=== PATIENT | female | born 1955 | race Caucasian/White ===

== ENCOUNTER 2018-06-13 08:00 | Outpatient (CLI) | payer BC, OTHER ==
[2018-06-14 11:00] LABS: MUDS CUTOFF CONCENTRATIONS CUTOFF CONC BELOW:
[2018-06-14 13:32] LABS: COCAINE SCREEN URINE NEGATIVE (NEGATIVE); METHAMPHETAMINES SCREEN, URINE NEGATIVE (NEGATIVE)
[2018-06-14 13:33] LABS: AMPHETAMINE SCREEN,URINE NEGATIVE (NEGATIVE); BENZODIAZEPINES SCREEN, URINE NEGATIVE (NEGATIVE); METHADONE SCREEN, URINE NEGATIVE (NEGATIVE); OPIATE SCREEN, URINE POSITIVE (NEGATIVE); OXYCODONE SCREEN, URINE NEGATIVE (NEGATIVE); PROPOXYPHENE SCREEN, URINE NEGATIVE (NEGATIVE); TRICYCLIC ANTIDEPRESSANT,URINE NEGATIVE (NEGATIVE)
== END 2018-06-13 23:59 ==
LOC: LAB.R 08:00
PROVIDERS: ATTEND Family Medicine
DX: F41.9 Anxiety disorder, unspecified (principal); Z79.891 Long term (current) use of opiate analgesic
CPT/HCPCS: 80306

== ENCOUNTER 2018-12-04 08:00 | Outpatient (CLI) | payer BC | END 2018-12-04 23:59 | disposition home or self-care (01) | LOC: LAB.R 08:00 | PROVIDERS: ATTEND Physician Assistant | DX: I83.209 Varicose veins of unspecified lower extremity with both ulcer of unspecified site and inflammation (principal); L97.909 Non-pressure chronic ulcer of unspecified part of unspecified lower leg with unspecified severity | CPT/HCPCS: 87070; 87075; 87147; 87186; 87205 ==

== ENCOUNTER 2018-12-24 12:37 | Outpatient (CLI) | payer BC ==
--- NOTE | 2018-12-24 14:02 | Ultrasound Report ---
Reason: LYMPHEDEMA Procedure Date: 12/24/2018 Accession Number: [id number] / [id number] Procedure: US - Ankle Brachial Index CPT Code: FULL RESULT: EXAM: BILATERAL ANKLE/BRACHIAL INDEX EXAM DATE: 12/24/2018 01:41 PM. CLINICAL HISTORY: Smoker with leg swelling, likely lymphedema. COMPARISON: None. TECHNIQUE: A blood pressure cuff and pulse volume recording Doppler ultrasound was used to evaluate the arterial pressures in the arms and ankle. No images were acquired. FINDINGS: Brachial pressure: Right brachial artery: 146/72 mmHg, index 1.00 Left brachial artery: 145/75 mmHg, index 1.00 Right ankle pressures: Posterior tibial artery: 144/72 mmHg, index 0.98 Left ankle pressures: Posterior tibial artery: 148/69 mmHg, index 1.0 Color and spectral Doppler interrogation of the left and right posterior tibial arteries as well as left and right dorsalis pedis arteries was performed. The right dorsalis pedis artery and posterior tibial artery both demonstrate normal triphasic waveforms with brisk systolic upstrokes. The left posterior tibial artery demonstrates a brisk systolic upstroke and normal triphasic waveform and the left dorsalis pedis artery demonstrates a biphasic waveform with preserved flow. IMPRESSION: 1. Right ankle/brachial index: 0.98. 2. Left ankle/brachial index: 1.0. ANKLE/BRACHIAL INDEX REFERENCE STANDARDS 1.0-1.4: Normal 0.90-0.99: Borderline < 0.9: Abnormal RADIA
== END 2018-12-24 12:38 | disposition home or self-care (01) ==
LOC: DI 12:37
PROVIDERS: ATTEND Physician Assistant
DX: I89.0 Lymphedema, not elsewhere classified (principal)
CPT/HCPCS: 93922

== ENCOUNTER 2019-06-10 08:00 | Outpatient (CLI) | payer BC ==
[2019-06-10 19:13] LABS: LITHIUM 0.47 mmol/L
== END 2019-06-10 23:59 | disposition home or self-care (01) ==
LOC: LAB.WCP 08:00
PROVIDERS: ATTEND Family Medicine
DX: Z51.81 Encounter for therapeutic drug level monitoring (principal); Z79.899 Other long term (current) drug therapy
CPT/HCPCS: 36415; 80178

== ENCOUNTER 2021-11-23 08:00 | Outpatient (CLI) | payer BC ==
[2021-11-23 17:59] LABS: BASOPHILS # (AUTO) 0.1 10^3/uL (0.0-0.1); BASOPHILS % (AUTO) 1.4 %; EOSINOPHILS # (AUTO) 0.6 10^3/uL (0.0-0.7); EOSINOPHILS % (AUTO) 6.9 %; HCT - HEMATOCRIT 42.3 % (37.0-47.0); HGB - HEMOGLOBIN 13.6 g/dL (12.0-16.0); LYMPHOCYTES # (AUTO) 2.6 10^3/uL (1.5-3.5); LYMPHOCYTES % (AUTO) 29.3 %; MEAN CORPUSCULAR HEMOGLOBIN 28.1 pg (27.0-31.0); MEAN CORPUSCULAR HGB CONC 32.2 g/dL (32.0-36.0); MEAN CORPUSCULAR VOLUME 87.4 fL (81.0-99.0); MEAN PLATELET VOLUME 9.2 fL (7.9-10.8); MONOCYTES # (AUTO) 0.8 10^3/uL (0.0-1.0); MONOCYTES % (AUTO) 8.9 %; NEUTROPHILS # (AUTO) 4.6 10^3/uL (1.5-6.6); NEUTROPHILS % (AUTO) 53.2 %; PLT - PLATELET COUNT 312 10^3/uL (130-450); RED BLOOD COUNT 4.84 10^6/uL (4.20-5.40); RED CELL DISTRIBUTION WIDTH 14.5 % (12.0-15.0); WHITE BLOOD COUNT 8.7 x10^3/uL (4.8-10.8)
[2021-11-23 21:32] LABS: ALBUMIN 3.8 g/dL (3.2-5.5); ALBUMIN/GLOBULIN RATIO 1.2 (1.0-2.2); BILIRUBIN,TOTAL 0.7 mg/dL (0.2-1.0); CREATININE 0.7 mg/dL (0.4-1.0); POTASSIUM 3.9 mmol/L (3.5-5.0)
[2021-11-23 21:43] LABS: THYROID STIMULATING HORMONE 4.03 uIU/mL (0.34-5.60)
== END 2021-11-23 23:59 | disposition home or self-care (01) ==
LOC: LAB.N 08:00
PROVIDERS: ATTEND Family Medicine
DX: L03.90 Cellulitis, unspecified (principal); I89.0 Lymphedema, not elsewhere classified; I87.2 Venous insufficiency (chronic) (peripheral); I10 Essential (primary) hypertension; C34.10 Malignant neoplasm of upper lobe, unspecified bronchus or lung
CPT/HCPCS: 36415; 80053; 83880; 84443; 85025; 87070; 87181; 87205

== ENCOUNTER 2021-11-23 13:42 | Outpatient (CLI) | payer BC ==
--- NOTE | 2021-11-23 14:01 | XRAY Report ---
PROCEDURE: Chest 2 View X-Ray INDICATIONS: CELLULITIS, LYMPHEDEMA TECHNIQUE: 2 view(s) of the chest. COMPARISON: Reference is made to the CT chest dated April 24, 2011. FINDINGS: SUPPORT DEVICES: None. LUNGS/PLEURA: No focal consolidation, pleural effusion or space-occupying pneumothorax. MEDIASTINUM: The cardiomediastinal silhouette is within normal limits. BONES/SOFT TISSUES: No acute abnormality. IMPRESSION: 1.No acute cardiopulmonary abnormality. Reviewed by: Mayo Oneal MD on 11/23/2021 1:59 PM [facility] Approved by: Mayo Oneal MD on 11/23/2021 1:59 PM [facility] Station ID: [id number]
== END 2021-11-23 23:59 | disposition home or self-care (01) ==
LOC: DI.N 13:42
PROVIDERS: ATTEND Family Medicine
DX: L03.90 Cellulitis, unspecified (principal); I89.0 Lymphedema, not elsewhere classified; I87.2 Venous insufficiency (chronic) (peripheral); I10 Essential (primary) hypertension; C34.10 Malignant neoplasm of upper lobe, unspecified bronchus or lung

== ENCOUNTER 2021-12-20 21:41 | Emergency (ER) | payer BC ==
[2021-12-20 22:25] VITALS: BP 161/80
[2021-12-20] MEDS ORDERED: MORPHINE 2 MG/ML CARPUJECT IVP STA (23:34)
[2021-12-21 00:10] LABS: BASOPHILS # (AUTO) 0.1 10^3/uL (0.0-0.1); BASOPHILS % (AUTO) 0.9 %; EOSINOPHILS # (AUTO) 0.3 10^3/uL (0.0-0.7); EOSINOPHILS % (AUTO) 3.3 %; HCT - HEMATOCRIT 41.6 % (37.0-47.0); HGB - HEMOGLOBIN 13.6 g/dL (12.0-16.0); LYMPHOCYTES # (AUTO) 2.7 10^3/uL (1.5-3.5); LYMPHOCYTES % (AUTO) 25.7 %; MEAN CORPUSCULAR HGB CONC 32.7 g/dL (32.0-36.0); MEAN CORPUSCULAR VOLUME 85.8 fL (81.0-99.0); MONOCYTES % (AUTO) 9.7 %; NEUTROPHILS # (AUTO) 6.2 10^3/uL (1.5-6.6); NEUTROPHILS % (AUTO) 60.1 %; PLT - PLATELET COUNT 300 10^3/uL (130-450); RED BLOOD COUNT 4.85 10^6/uL (4.20-5.40); RED CELL DISTRIBUTION WIDTH 14.2 % (12.0-15.0); WHITE BLOOD COUNT 10.4 x10^3/uL (4.8-10.8)
[2021-12-21 00:15] LABS: ALBUMIN 3.6 g/dL (3.2-5.5); ALBUMIN/GLOBULIN RATIO 1.2 (1.0-2.2); BILIRUBIN,TOTAL 0.6 mg/dL (0.2-1.0); CALCIUM 8.8 mg/dL (8.5-10.3); CREATININE 0.7 mg/dL (0.4-1.0); POTASSIUM 3.5 mmol/L (3.5-5.0); TOTAL PROTEIN 6.7 g/dL (6.7-8.2)
[2021-12-21] MEDS ORDERED: HYDROmorphone 1 MG/ML CARPUJECT IM STA (00:44)
[2021-12-21] MEDS ORDERED: ceFAZolin 1 GM in SODIUM CHLORIDE 0.9% MINIBAG 100 ML IV STA (00:51)
[2021-12-21] MEDS ORDERED: ceFAZolin 1 GM VIAL ONE (01:09)
[2021-12-21] MEDS ORDERED: DOXYCYCLINE 100 MG TABLET PO STA (01:32)
[2021-12-21] MEDS ORDERED: oxyCODONE/ACET 5/325 Prepack 4 PO STA (01:32)
--- NOTE | 2021-12-21 01:38 | ED Physician Documentation ---
PD HPI LOWER EXT INJURY - Stated complaint Stated Complaint: LT LEG OPEN WOUND/PX - Chief complaint Chief Complaint: Ext Problem - History obtained from History obtained from: Patient - Additional information Additional information: Patient is a 62-year-old female with a history significant for venous stasis presenting for evaluation of left lower extremity cellulitis that has been present for 6 weeks. Patient has been seen by her primary care doctor's office as well as urgent care and prescribed 2 courses of cephalexin. She states that it did improve after the first course but not after the second. She has had wound cultures taken. She was seen at the walk-in clinic again today and advised to come to the emergency department asThe cephalexin that she just completed 1 day ago did not appear to help.Patient denies history of PE or DVT. Denies recent trauma.She has had clear drainage from the wounds. She has not yet seen wound care. Denies fever, chest pain, difficulty breathing, vomiting or diarrhea.Patient reports burning pain due to weeping wounds. Review of Systems Constitutional: denies: Fever Nose: denies: Congestion Cardiac: denies: Chest pain / pressure, Palpitations Respiratory: denies: Dyspnea, Cough GI: denies: Abdominal Pain, Vomiting : denies: Dysuria Skin: reports: Rash, Lesions Musculoskeletal: reports: Extremity swelling Neurologic: denies: Syncope PD PAST MEDICAL HISTORY - Past Medical History Past Medical History: Yes Neuro: Peripheral neuropathy Derm: Other Other Past Medical History: lung cancer, melanoma, possible lymphadema. - Present Medications Home Medications: Ambulatory Orders Medication Instructions Recorded Confirmed Doxycycline Hyclate 100 mg PO BID #20 tab.sr 12/21/21 Oxycodone HCl/Acetaminophen 1 each PO Q6H PRN #14 tablet 12/21/21 [Percocet 5-325 mg Tablet] - Allergies Allergies/Adverse Reactions: Allergies Allergy/AdvReac Type Severity Reaction Status Date / Time No Known Drug Allergies Allergy Verified 12/20/21 23:40 - Social History Does the pt smoke?: Yes Smoking Status: Current every day smoker Does the pt have substance abuse?: Yes Substance Use and Type: Prescription Pills PD ED PE NORMAL - General General: Alert and oriented X 3, No acute distress, Well developed/nourished - HEENT HEENT: Atraumatic, Moist mucous membranes - Neck Neck: Supple, no meningeal sign - Cardiac Cardiac: RRR, No murmur, Strong equal pulses - Respiratory Respiratory: No respiratory distress, Clear bilaterally - Abdomen Abdomen: Normal bowel sounds, Soft, Non tender - Extremities Extremities: Other (Pitting edema to bilateral lower extremities, erythemaTo left lower leg with multiple shallow ulcerations/open wounds to posterior leg with clear drainage, no fluctuance, no crepitus, distal pulses intact,Patient able to ambulate) Results - Vitals Vitals: Vital Signs - 24 hr 12/20/21 12/20/21 12/21/21 22:23 22:25 01:12 Temperature 36.6 C 36.6 C Heart Rate 73 73 Respiratory 18 18 19 Rate Blood Pressure 161/80 H 161/80 H O2 Saturation 97 97 Oxygen O2 Source Room air - Labs Labs: Laboratory Tests 12/21/21 12/21/21 00:00 00:00 WBC 10.4 RBC 4.85 Hgb 13.6 Hct 41.6 MCV 85.8 MCH 28.0 MCHC 32.7 RDW 14.2 Plt Count 300 MPV 9.0 Neut # (Auto) 6.2 Lymph # (Auto) 2.7 [place] # (Auto) 1.0 Eos # (Auto) 0.3 Baso # (Auto) 0.1 Absolute Nucleated RBC 0.00 Nucleated RBC % 0.0 Sodium 135 Potassium 3.5 Chloride 102 Carbon Dioxide 25 Anion Gap 8.0 BUN 11 Creatinine 0.7 Estimated GFR (MDRD) 84 L Glucose 110 H Calcium 8.8 Total Bilirubin 0.6 AST 16 ALT 13 Alkaline Phosphatase 101 Total Protein 6.7 Albumin 3.6 Globulin 3.1 Albumin/Globulin Ratio 1.2 PD MEDICAL DECISION MAKING - ED course Complexity details: reviewed results, d/w patient, d/w family ED course: Patient is a 62-year-old female presenting for evaluation of left leg cellulitis which has not improved with outpatient therapy. She is not septic and has reassuring vital signs and labs. On exam she does appear to have cellulitis to her left leg. I do not think her exam suggest a DVT, Or a necrotizing infection. As she has failed 2 courses of outpatient antibiotics I did discuss the case with the hospitalist, Dr. Staley. Given her reassuring labs andVital signs, hospitalist does not think she needs to be admitted to the hospital at this time for IV antibiotics. Recommends changing her p.o. antibiotics and having her PCP refer her to wound care. If she were to be admitted she would not have wound care see her anymore urgently.I did review this with the patient and her spouse at the bedside. They indicate understanding and are aware of need to comply with an additional course of antibiotics. They are aware of return precautions. Departure - Departure Disposition: 01 Home, Self Care Clinical Impression: Cellulitis Qualifiers: Site of cellulitis: extremity Site of cellulitis of extremity: lower extremity Laterality: left Qualified Code(s): L03.116 - Cellulitis of left lower limb Venous stasis dermatitis Qualifiers: Laterality: bilateral Qualified Code(s): I87.2 - Venous insufficiency (chronic) (peripheral) Condition: Stable Instructions: ED Infec Skin Cellulitis Prescriptions: Doxycycline Hyclate 100 mg PO BID #20 tab.sr Oxycodone HCl/Acetaminophen [Percocet 5-325 mg Tablet] 1 each PO Q6H PRN #14 tablet PRN Reason: pain Comments: You were evaluated for an infection to your left leg. Fortunately your labs were normal and your vital signs were also reassuring. You did receive 1 dose of IV antibiotics in the emergency department. You will be started on a new antibiotic. You should also have your primary doctor refer you to the wound clinic at [facility]. Please take the antibiotics as prescribed. Prescriptions for pain medication and the antibiotic were sent to the [facility] in [place]. Please have another follow-up with your primary care doctor in 3 to 5 days. If you develop a fever, Worsening pain Or swelling Or have any new concerns please return to the emergency department. Discharge Date/Time: 12/21/21 02:22
== END 2021-12-21 02:22 | disposition home or self-care (01) ==
LOC: ED 21:41
DX: L03.116 Cellulitis of left lower limb (principal); F17.200 Nicotine dependence, unspecified, uncomplicated; I87.2 Venous insufficiency (chronic) (peripheral)
CPT/HCPCS: 36415; 80053; 85025; 87070; 87205; 96365; 96375; 99284; A9270

== ENCOUNTER 2022-01-24 11:01 | Outpatient (CLI) | payer BC | END 2022-01-24 23:59 | disposition home or self-care (01) | LOC: LAB 11:01 | PROVIDERS: ATTEND Nurse Practitioner Family | DX: J31.0 Chronic rhinitis (principal) | CPT/HCPCS: 87077; 87081; 87181 ==

== ENCOUNTER 2022-04-14 13:00 | Outpatient (CLI) | payer BC ==
--- NOTE | 2022-04-14 16:10 | DEXA Report ---
PROCEDURE: Dexa Spine and/or Hip INDICATIONS: POST MENOPAUSAL TECHNIQUE: Dual energy x-ray absorptiometry (DXA) was performed on a [employer] System. Regions measur ed are the AP Spine, femoral neck, and if needed forearm. COMPARISON: None. FINDINGS: Lumbar Spine: Bone Mineral Density 1.1 g/cm/cm,T score -0.8, There is sclerosis of L3 and L4. The T score for L1 and L2 measure -1.9 and -2.1. Left Femoral Neck: Bone Mineral Density 0.82 g/cm/cm, T score -1.6, (T score greater or equal to -1.0: NORMAL) (T score from -1.1 to -2.4: OSTEOPENIA) (T score less than or equal to -2.5 to: OSTEOPOROSIS) Impression: Left femoral neck osteopenia. L1 and L2 osteopenia. Sclerosis of L3 and L4. Patients with diagnosis of osteoporosis or osteopenia should have regular bone mineral density assess ment. For those eligible for Medicare, routine testing is allowed once every 2 years. Testing frequ ency can be increased for patients who have rapidly progressing disease or for those who are receivin g medical therapy to restore bone mass. Reviewed by: Jacques Dominguez MD on 04/14/2022 4:09 PM PDT Approved by: Jacques Dominguez MD on 04/14/2022 4:09 PM PDT Station ID: [id number]
== END 2022-04-14 23:59 | disposition home or self-care (01) ==
LOC: DI 13:00
PROVIDERS: ATTEND Nurse Practitioner Family
DX: M85.89 Other specified disorders of bone density and structure, multiple sites (principal); Z78.0 Asymptomatic menopausal state

== ENCOUNTER 2022-05-27 14:31 | Outpatient (CLI) | payer MEDICARE, BC | END 2022-05-27 14:32 | disposition critical access hospital (66) | LOC: EMS 14:31 | DX: R41.82 Altered mental status, unspecified (principal); M79.89 Other specified soft tissue disorders; M79.605 Pain in left leg; M54.9 Dorsalgia, unspecified | CPT/HCPCS: A0425; A0429 ==

== ENCOUNTER 2022-05-27 14:45 | Emergency (ER) | payer MEDICARE, BC ==
[2022-05-27] MEDS ORDERED: VANCOMYCIN INJ 2.25 GM in SODIUM CHLORIDE 0.9% 500 ML IV STA (14:58)
[2022-05-27] MEDS ORDERED: CLINDAMYCIN 600 MG/50 ML 50 ML IV ONE ×2 (14:58→14:59)
[2022-05-27] MEDS ORDERED: PIPERACILLIN/TAZOBACTAM 4.5 GM in SODIUM CHLORIDE 0.9% MINIBAG 100 ML IV STA (14:58)
[2022-05-27] MEDS ORDERED: KETAMINE 500 MG/10 ML VIAL IVP STA (15:01)
[2022-05-27] MEDS ORDERED: fentaNYL 100 MCG/2 ML VIAL IVP STA (15:01)
[2022-05-27] MEDS ORDERED: ROCURONIUM 50 MG/5 ML VIAL IVP STA (15:01)
[2022-05-27] MEDS ORDERED: fentaNYL 2,500 MCG in SODIUM CHLORIDE 0.9% 200 ML IV STA (15:05)
[2022-05-27] MEDS ORDERED: KETAMINE 500 MG/10 ML VIAL ONE (15:18)
[2022-05-27] MEDS ORDERED: NOREPINEPHRINE/D5W 8 MG/250 ML BAG IV STA (15:27)
[2022-05-27] MEDS ORDERED: NOREPINEPHRINE/D5W 8 MG/250 ML BAG IV ONE (15:37)
--- NOTE | 2022-05-27 15:49 | ED Physician Documentation ---
History of Present Illness - Stated complaint Stated Complaint: WITHDRAWL - Chief complaint Chief Complaint: General - History obtained from History obtained from: Patient, EMS - Additonal information Additional information: 66-year-old woman with history of fibromyalgia and lymphedema of unknown etiology presents by ambulance for reported withdrawal. arrived later and provide much of the history. Reportedly has had worsening leg pain for the last week and stopped most of her medications and was having a lot of pain so was self-medicating with street bought fentanyl. Per EMS has been tachycardic near 200, with soft blood pressures of 90/60. History is limited from the patient, she is able to answer simple questions but is disoriented to time and events. Review of Systems Unable to obtain: Confused PD PAST MEDICAL HISTORY - Past Medical History Past Medical History: Yes Cardiovascular: None Respiratory: Sleep apnea, Other Neuro: Peripheral neuropathy Endocrine/Autoimmune: None GI: Other FIELD UNDERWRITER: None : None HEENT: None Psych: Anxiety Musculoskeletal: Fibromyalgia Derm: Other Other Past Medical History: lung cancer with wedge resection - Past Surgical History Past Surgical History: Yes - Present Medications Home Medications: Ambulatory Orders Medication Instructions Recorded Confirmed Naproxen [Naprosyn] 500 mg PO BID PRN 02/02/22 05/27/22 DULoxetine [Cymbalta] 30 mg PO DAILY 05/27/22 05/27/22 Furosemide [Lasix] 40 mg PO DAILY 05/27/22 05/27/22 Mirtazapine 7.5 mg PO HS PRN 05/27/22 05/27/22 - Allergies Allergies/Adverse Reactions: Allergies Allergy/AdvReac Type Severity Reaction Status Date / Time No Known Drug Allergies Allergy Verified 05/27/22 14:54 - Social History Does the pt smoke?: Yes Smoking Status: Current every day smoker Does the pt drink ETOH?: Yes Does the pt have substance abuse?: Yes Substance Use and Type: Prescription Pills - Immunizations Immunizations are current?: No PD ED PE NORMAL - Vitals Vital signs reviewed: Yes - General General: Other (She is alert and oriented to person and place but not time or events, she is writhing in pain and agitated.) - HEENT HEENT: Other (Dilated pupils) - Cardiac Cardiac: Other (Rapid and irregular without murmur, somewhat distant) - Respiratory Respiratory: No respiratory distress, Clear bilaterally - Abdomen Abdomen: Normal bowel sounds, Soft, Non tender - Extremities Extremities: Other (Both legs have very poor perfusion, the left leg in particular is cold from the mid thigh down with no pulses. She is the skin is denuded infected and foul-smelling.) - Neuro Eye Opening: Spontaneous Motor: Obeys Commands Verbal: Confused GCS Score: 14 Results - Vitals Vitals: Vital Signs - 24 hr 05/27/22 05/27/22 05/27/22 14:54 15:28 15:35 Temperature 36.8 C Heart Rate 66 213 H 200 H Respiratory 30 H 18 16 Rate Blood Pressure 100/77 93/53 L 109/82 H O2 Saturation 80 L 96 96 05/27/22 05/27/22 05/27/22 16:51 17:00 17:30 Temperature 35.5 C L 36.2 C L Heart Rate 168 H 160 H 143 H Respiratory 31 H 22 22 Rate Blood Pressure 114/59 L 111/79 91/67 O2 Saturation 96 97 97 05/27/22 17:52 Temperature 36.1 C L Heart Rate 22 L Respiratory 22 Rate Blood Pressure 94/49 L O2 Saturation 100 Oxygen O2 Source Mechanical ventilator - EKG (time done) 1547 Rate: Rate (enter#) (200) Rhythm: Atrial fibrillation [place]: Normal QRS: Normal Ischemia: Non specific changes. No: ST elevation c/w ischemia - Labs Labs: Laboratory Tests 05/27/22 05/27/22 05/27/22 15:41 15:41 15:41 WBC 43.7 H* RBC 4.88 Hgb 13.2 Hct 39.5 MCV 80.9 L MCH 27.0 MCHC 33.4 RDW 15.9 H Plt Count 146 MPV 11.9 H Neut # (Auto) Not Reportable Lymph # (Auto) Not Reportable [place] # (Auto) Not Reportable Eos # (Auto) Not Reportable Baso # (Auto) Not Reportable Absolute Nucleated RBC Not Reportable Total Counted 100 Band Neuts % (Manual) 26 H Abnorm Lymph % (Manual) 0 Metamyelocytes % 3 H Nucleated RBC % Not Reportable Neutrophils # (Manual) 39.8 H Lymphocytes # (Manual) 0.4 L Monocytes # (Manual) 2.2 H Eosinophils # (Manual) 0.0 Basophils # (Manual) 0.0 Differential Comment MANUAL DIFFERENTIAL Platelet Estimate NORMAL (130-450,000) Platelet Morphology RARE GIANT PLATELETS RBC Morph Micro Appear NORMAL APPEARANCE PT INR APTT Bld Gas Analysis Time Sample Site ABG pH ABG pCO2 ABG pO2 ABG HCO3 ABG Total CO2 ABG O2 Saturation ABG Base Excess [place] Test VBG pH VBG pCO2 VBG pO2 VBG HCO3 VBG Total CO2 VBG O2 Saturation VBG Base Excess Respiration Rate O2 Delivery Device Vent Mode FiO2 Tidal Volume PEEP Sodium 129 L Potassium 3.3 L Chloride 101 Carbon Dioxide 14 L Anion Gap 14.0 H BUN 67 H Creatinine 2.7 H Estimated GFR (MDRD) 18 L Glucose 177 H Lactic Acid 7.8 H* Calcium 6.5 L* Phosphorus 8.4 H Magnesium 2.4 Total Bilirubin 1.0 AST 30 ALT 14 Alkaline Phosphatase 101 Total Protein 5.1 L Albumin 1.0 L Globulin 4.1 Albumin/Globulin Ratio 0.2 L Urine Color Urine Clarity Urine pH Ur Specific [place] Urine Protein Urine Glucose (UA) Urine Ketones Urine Occult Blood Urine Nitrite Urine Bilirubin Urine Urobilinogen Ur Leukocyte Esterase Urine RBC Urine WBC Ur Squamous Epith Cells Amorphous Sediment Urine Bacteria Urine Casts Urine Culture Comments Nasal Adenovirus (PCR) Nasal B. parapertussis DNA (PCR) Nasal Coronavir 229E PCR Nasal Coronavir HKU1 PCR Nasal Coronavir NL63 PCR Nasal Coronavir OC43 PCR Nasal Enterovir/Rhinovir PCR Nasal Influenza B PCR Nasal Influenza A PCR Nasal Parainfluen 1 PCR Nasal Parainfluen 2 PCR Nasal Parainfluen 3 PCR Nasal Parainfluen 4 PCR Nasal RSV (PCR) Nasal B.pertussis DNA PCR Nasal C.pneumoniae (PCR) Toby Human Metapneumo PCR Nasal M.pneumoniae (PCR) Nasal SARS-CoV-2 (PCR) Urine Opiates Screen Ur Oxycodone Screen Urine Methadone Screen Ur Propoxyphene Screen Ur Barbiturates Screen Ur Tricyclics Screen Ur Phencyclidine Scrn Ur Amphetamine Screen U Methamphetamines Scrn U Benzodiazepines Scrn Urine Cocaine Screen U Cannabinoids Screen Ethyl Alcohol < 5.0 05/27/22 05/27/22 05/27/22 15:41 15:41 16:40 WBC RBC Hgb Hct MCV MCH MCHC RDW Plt Count MPV Neut # (Auto) Lymph # (Auto) [place] # (Auto) Eos # (Auto) Baso # (Auto) Absolute Nucleated RBC Total Counted Band Neuts % (Manual) Abnorm Lymph % (Manual) Metamyelocytes % Nucleated RBC % Neutrophils # (Manual) Lymphocytes # (Manual) Monocytes # (Manual) Eosinophils # (Manual) Basophils # (Manual) Differential Comment Platelet Estimate Platelet Morphology RBC Morph Micro Appear PT 25.7 H INR 2.4 H APTT 39.9 H Bld Gas Analysis Time Sample Site ABG pH ABG pCO2 ABG pO2 ABG HCO3 ABG Total CO2 ABG O2 Saturation ABG Base Excess [place] Test VBG pH 7.125 L VBG pCO2 38.8 L VBG pO2 103.2 H VBG HCO3 12.5 L VBG Total CO2 13.7 L VBG O2 Saturation 95.6 H VBG Base Excess -16.0 L Respiration Rate O2 Delivery Device Vent Mode FiO2 Tidal Volume PEEP Sodium Potassium Chloride Carbon Dioxide Anion Gap BUN Creatinine Estimated GFR (MDRD) Glucose Lactic Acid Calcium Phosphorus Magnesium Total Bilirubin AST ALT Alkaline Phosphatase Total Protein Albumin Globulin Albumin/Globulin Ratio Urine Color Urine Clarity Urine pH Ur Specific [place] Urine Protein Urine Glucose (UA) Urine Ketones Urine Occult Blood Urine Nitrite Urine Bilirubin Urine Urobilinogen Ur Leukocyte Esterase Urine RBC Urine WBC Ur Squamous Epith Cells Amorphous Sediment Urine Bacteria Urine Casts Urine Culture Comments Nasal Adenovirus (PCR) NOT DETECTED Nasal B. parapertussis DNA (PCR) NOT DETECTED Nasal Coronavir 229E PCR NOT DETECTED Nasal Coronavir HKU1 PCR NOT DETECTED Nasal Coronavir NL63 PCR NOT DETECTED Nasal Coronavir OC43 PCR NOT DETECTED Nasal Enterovir/Rhinovir PCR NOT DETECTED Nasal Influenza B PCR NOT DETECTED Nasal Influenza A PCR NOT DETECTED Nasal Parainfluen 1 PCR NOT DETECTED Nasal Parainfluen 2 PCR NOT DETECTED Nasal Parainfluen 3 PCR NOT DETECTED Nasal Parainfluen 4 PCR NOT DETECTED Nasal RSV (PCR) NOT DETECTED Nasal B.pertussis DNA PCR NOT DETECTED Nasal C.pneumoniae (PCR) NOT DETECTED Toby Human Metapneumo PCR NOT DETECTED Nasal M.pneumoniae (PCR) NOT DETECTED Nasal SARS-CoV-2 (PCR) NOT DETECTED Urine Opiates Screen Ur Oxycodone Screen Urine Methadone Screen Ur Propoxyphene Screen Ur Barbiturates Screen Ur Tricyclics Screen Ur Phencyclidine Scrn Ur Amphetamine Screen U Methamphetamines Scrn U Benzodiazepines Scrn Urine Cocaine Screen U Cannabinoids Screen Ethyl Alcohol 05/27/22 05/27/22 05/27/22 16:50 17:00 17:42 WBC RBC Hgb Hct MCV MCH MCHC RDW Plt Count MPV Neut # (Auto) Lymph # (Auto) [place] # (Auto) Eos # (Auto) Baso # (Auto) Absolute Nucleated RBC Total Counted Band Neuts % (Manual) Abnorm Lymph % (Manual) Metamyelocytes % Nucleated RBC % Neutrophils # (Manual) Lymphocytes # (Manual) Monocytes # (Manual) Eosinophils # (Manual) Basophils # (Manual) Differential Comment Platelet Estimate Platelet Morphology RBC Morph Micro Appear PT INR APTT Bld Gas Analysis Time 1657 Sample Site LEFT RADIAL ABG pH 7.17 L* ABG pCO2 48 H ABG pO2 327 H* ABG HCO3 17.1 L ABG Total CO2 18.5 L ABG O2 Saturation 99 H ABG Base Excess -11.3 L [place] Test POSITIVE VBG pH VBG pCO2 VBG pO2 VBG HCO3 VBG Total CO2 VBG O2 Saturation VBG Base Excess Respiration Rate 16 O2 Delivery Device VENTILATOR Vent Mode ASSIST/CONTROL FiO2 100.00 Tidal Volume 450 PEEP 5 Sodium Potassium Chloride Carbon Dioxide Anion Gap BUN Creatinine Estimated GFR (MDRD) Glucose Lactic Acid 5.1 H* Calcium Phosphorus Magnesium Total Bilirubin AST ALT Alkaline Phosphatase Total Protein Albumin Globulin Albumin/Globulin Ratio Urine Color YELLOW Urine Clarity HAZY Urine pH 5.5 Ur Specific [place] 1.010 Urine Protein 30 H Urine Glucose (UA) NEGATIVE Urine Ketones NEGATIVE Urine Occult Blood MODERATE H Urine Nitrite NEGATIVE Urine Bilirubin NEGATIVE Urine Urobilinogen 1 (NORMAL) Ur Leukocyte Esterase NEGATIVE Urine RBC 6-10 H Urine WBC 6-10 H Ur Squamous Epith Cells MANY Squamous H Amorphous Sediment Few Urine Bacteria Many H Urine Casts 3-5 Hyaline Casts Urine Culture Comments NOT INDICATED Nasal Adenovirus (PCR) Nasal B. parapertussis DNA (PCR) Nasal Coronavir 229E PCR Nasal Coronavir HKU1 PCR Nasal Coronavir NL63 PCR Nasal Coronavir OC43 PCR Nasal Enterovir/Rhinovir PCR Nasal Influenza B PCR Nasal Influenza A PCR Nasal Parainfluen 1 PCR Nasal Parainfluen 2 PCR Nasal Parainfluen 3 PCR Nasal Parainfluen 4 PCR Nasal RSV (PCR) Nasal B.pertussis DNA PCR Nasal C.pneumoniae (PCR) Toby Human Metapneumo PCR Nasal M.pneumoniae (PCR) Nasal SARS-CoV-2 (PCR) Urine Opiates Screen NEGATIVE Ur Oxycodone Screen NEGATIVE Urine Methadone Screen NEGATIVE Ur Propoxyphene Screen NEGATIVE Ur Barbiturates Screen NEGATIVE Ur Tricyclics Screen NEGATIVE Ur Phencyclidine Scrn NEGATIVE Ur Amphetamine Screen NEGATIVE U Methamphetamines Scrn NEGATIVE U Benzodiazepines Scrn NEGATIVE Urine Cocaine Screen NEGATIVE U Cannabinoids Screen NEGATIVE Ethyl Alcohol 05/27/22 17:42 WBC RBC Hgb Hct MCV MCH MCHC RDW Plt Count MPV Neut # (Auto) Lymph # (Auto) [place] # (Auto) Eos # (Auto) Baso # (Auto) Absolute Nucleated RBC Total Counted Band Neuts % (Manual) Abnorm Lymph % (Manual) Metamyelocytes % Nucleated RBC % Neutrophils # (Manual) Lymphocytes # (Manual) Monocytes # (Manual) Eosinophils # (Manual) Basophils # (Manual) Differential Comment Platelet Estimate Platelet Morphology RBC Morph Micro Appear PT INR APTT Bld Gas Analysis Time Sample Site ABG pH ABG pCO2 ABG pO2 ABG HCO3 ABG Total CO2 ABG O2 Saturation ABG Base Excess [place] Test VBG pH VBG pCO2 VBG pO2 VBG HCO3 VBG Total CO2 VBG O2 Saturation VBG Base Excess Respiration Rate O2 Delivery Device Vent Mode FiO2 Tidal Volume PEEP Sodium 126 L Potassium 3.5 Chloride 100 L Carbon Dioxide 17 L Anion Gap 9.0 BUN 66 H Creatinine 2.6 H Estimated GFR (MDRD) 19 L Glucose 136 H Lactic Acid Calcium 7.2 L Phosphorus Magnesium Total Bilirubin AST ALT Alkaline Phosphatase Total Protein Albumin Globulin Albumin/Globulin Ratio Urine Color Urine Clarity Urine pH Ur Specific [place] Urine Protein Urine Glucose (UA) Urine Ketones Urine Occult Blood Urine Nitrite Urine Bilirubin Urine Urobilinogen Ur Leukocyte Esterase Urine RBC Urine WBC Ur Squamous Epith Cells Amorphous Sediment Urine Bacteria Urine Casts Urine Culture Comments Nasal Adenovirus (PCR) Nasal B. parapertussis DNA (PCR) Nasal Coronavir 229E PCR Nasal Coronavir HKU1 PCR Nasal Coronavir NL63 PCR Nasal Coronavir OC43 PCR Nasal Enterovir/Rhinovir PCR Nasal Influenza B PCR Nasal Influenza A PCR Nasal Parainfluen 1 PCR Nasal Parainfluen 2 PCR Nasal Parainfluen 3 PCR Nasal Parainfluen 4 PCR Nasal RSV (PCR) Nasal B.pertussis DNA PCR Nasal C.pneumoniae (PCR) Toby Human Metapneumo PCR Nasal M.pneumoniae (PCR) Nasal SARS-CoV-2 (PCR) Urine Opiates Screen Ur Oxycodone Screen Urine Methadone Screen Ur Propoxyphene Screen Ur Barbiturates Screen Ur Tricyclics Screen Ur Phencyclidine Scrn Ur Amphetamine Screen U Methamphetamines Scrn U Benzodiazepines Scrn Urine Cocaine Screen U Cannabinoids Screen Ethyl Alcohol - Rads (name of study) CT runoff of the abdomen extremities show no significant PVD. Edema in the left leg and foot with gas. No sign of osteomyelitis. Radiology: EMP read contemporaneously CT Head Radiology: EMP read contemporaneously (NAD) Procedures - Intubation Provider: Emergency physician Medications: Ketamine (250mg) Blade: Glidescope Tube: Size-enter number (7.5), Cuffed Route: Oral Confirmation: Direct visualization, Bilateral breath sounds, End tidal CO2, Pul se ox, Chest xray Complications: No compications - Central Line Central Line Preparation: Unable to obtain consent Central line location: Right IJ Central line type: Triple lumen Central line aftercare: Chlorhexidine disc placed, Secured, Placement confirmed, No pneumothorax, No complications, Bundle checklist complete, Pt tolerated well PD MEDICAL DECISION MAKING - ED course ED course: 66-year-old woman arrives by ambulance critically ill with what looks like frankly a leg on the left probably causing septic shock. She is profoundly tachycardicIn A. fib with RVR, and has had some soft blood pressures. Initially talking to her she said she would rather than lose her leg but then said she wanted a few minutes to think about it, and then when discussed with her that it may be the choice between dying versus losing her legs she said she wanted to live and agreed to full interventions. Her was at the bedside and agreed. She was intubated and then a central line was placed. Of note it took [address] the central line because the wire bent on the first 1 and I had to abort and used a second kit. Broad-spectrum antibiotics for potential necrotizing fasciitis were ordered including Zosyn (4.5g), high- dose clindamycin (1200mg), and vancomycin (2.25g). Chest x-ray showed appropriate placement of the central line, but her endotracheal tube was a bit deep and pulled back 2 cm by the respiratory therapist. She went over for a head CT which I looked at and looks okay to me, and CT angiography of the abdomen and legs which demonstrates severe edema of the left leg as well as some foci of soft tissue gas near the ankle. [facility] was called for consultation and likely transfer given the diagnosis of necrotizing fasciitis which is corroborated by her labs including a severe leukocytosis with bandemia, acute renal failure, hyponatremia, and profound lactic acidosis. I called [facility] for transfer and she was accepted by Dr. Rolando Crawford at approximately 5:05 PM to their ER for further evaluation and treatment. At that point she had already received 10 mg of diltiazem which brought her heart rate from about 200 to about 170. And this was repeated. He also requested we load her with amiodarone and this was ordered. is amenable to transfer. - Critical Care Time(min): 65 Time Includes: Direct patient care, Review records, Reassess patient, Document care, Coordinate care, Medical consult, Family consult for [facility] Data interpretation: Labs, Pulse ox Procedures included in critical care time: Peripheral IV Procedures excluded from critical care time: Central IV, Intubation Departure - Departure Disposition: 02 Transfer Acute Care Hosp Clinical Impression: Necrotizing fasciitis, ARF (acute renal failure), Atrial fibrillation with RVR Condition: Critical Discharge Date/Time: 05/27/22 18:23
[2022-05-27] MEDS ORDERED: diltiaZEM INJ 5 MG/ML VIAL IVP STA ×3 (15:53→17:06)
[2022-05-27 15:58] LABS: BASOPHILS % (AUTO) 0.1 %; HCT - HEMATOCRIT 39.5 % (37.0-47.0); HGB - HEMOGLOBIN 13.2 g/dL (12.0-16.0); LYMPHOCYTES % (AUTO) 2.1 %; MEAN CORPUSCULAR HGB CONC 33.4 g/dL (32.0-36.0); MEAN CORPUSCULAR VOLUME 80.9 fL (81.0-99.0); MEAN PLATELET VOLUME 11.9 fL (7.9-10.8); MONOCYTES % (AUTO) 0.8 %; PLT - PLATELET COUNT 146 10^3/uL (130-450); RED BLOOD COUNT 4.88 10^6/uL (4.20-5.40); RED CELL DISTRIBUTION WIDTH 15.9 % (12.0-15.0)
[2022-05-27 15:59] LABS: VBG HCO3 12.5 mmol/L (23-28); VBG PCO2 38.8 mmHg (41-51); VBG PH 7.125 (7.31-7.41); VBG PO2 103.2 mmHg (25-47)
[2022-05-27 16:00] LABS: VBG OXYGEN SATURATION 95.6 % (60-80); VBG TOTAL CO2 13.7 mmol/L (24-29)
[2022-05-27] MEDS ORDERED: fentaNYL 2,500 MCG in SODIUM CHLORIDE 0.9% 200 ML IV SCH (16:00)
[2022-05-27 16:03] LABS: ABNORMAL LYMPHS % (MANUAL) 0 %; WHITE BLOOD COUNT 43.7 x10^3/uL (4.8-10.8)
--- NOTE | 2022-05-27 16:09 | XRAY Report ---
PROCEDURE: Chest 1 View X-Ray INDICATIONS: shock TECHNIQUE: One view of the chest was acquired. COMPARISON: Chest radiographs 11/23/2021 FINDINGS: Surgical changes and devices: Endotracheal tube is seen with tip less than 1 cm above the coty. Ri ght internal jugular catheter is seen with tip projecting over the superior vena cava. Lungs and pleura: No pleural effusions or pneumothorax. Lungs are clear. Mediastinum: Mediastinal contours appear normal. Heart size is normal. Bones and chest wall: No suspicious bony lesions. Overlying soft tissues appear unremarkable. IMPRESSION: 1.Endotracheal tube is seen with tip less than 1 cm from the coty. Recommend repositioning. 2.Right internal jugular catheter is in satisfactory position. Findings were discussed with the referring physician, Dr. Arango, by telephone on 05/27/2022 at 3:07 P M ([place] time). He reports that the endotracheal tube has already been repositioned at the time of t his dictation. Reviewed by: Mik Estrella MD on 05/27/2022 3:08 PM ROSA ISELA Approved by: Mik Estrella MD on 05/27/2022 3:08 PM ROSA ISELA Station ID: [id number]
[2022-05-27 16:17] LABS: INR 2.4 (0.8-1.2); PT - PROTHROMBIN TIME 25.7 secs (9.9-12.6)
[2022-05-27 16:24] LABS: ALBUMIN/GLOBULIN RATIO 0.2 (1.0-2.2); ALKALINE PHOSPHATASE 101 IU/L (42-121); ALT ALANINE AMINOTRANSFERASE 14 IU/L (10-60); AST ASPARTATE AMINOTRANSFERASE 30 IU/L (10-42); BAND NEUTROPHILS % (MANUAL) 26 %; BUN - BLOOD UREA NITROGEN 67 mg/dL (6-20); CARBON DIOXIDE - CO2 14 mmol/L (21-32); CHLORIDE 101 mmol/L (101-111); CREATININE 2.7 mg/dL (0.4-1.0); ETOH - ETHANOL < 5.0 mg/dL; GFR - MDRD 18 (>89); GLUCOSE 177 mg/dL (70-100); LYMPHOCYTES # (MANUAL) 0.4 10^3/uL (1.5-3.5); LYMPHOCYTES % (MANUAL) 1 %; MAGNESIUM 2.4 mg/dL (1.7-2.8); METAMYELOCYTES % (MANUAL) 3 %; MONOCYTES # (MANUAL) 2.2 10^3/uL (0.0-1.0); NEUTROPHILS # (MANUAL) 39.8 10^3/uL (1.5-6.6); PHOSPHORUS 8.4 mg/dL (2.5-4.6); POTASSIUM 3.3 mmol/L (3.5-5.0); SODIUM 129 mmol/L (135-145); TOTAL PROTEIN 5.1 g/dL (6.7-8.2)
[2022-05-27 16:25] LABS: CALCIUM 6.5 mg/dL (8.5-10.3); LACTIC ACID, VENOUS 7.8 mmol/L (0.5-2.2); PARTIAL THROMBOPLASTIN TIME 39.9 secs (24.9-33.3); PLATELET ESTIMATE, MANUAL NORMAL (130-450,000) (NORMAL); PLATELET MORPHOLOGY RARE GIANT PLATELETS (NORMAL); RBC MORPHOLOGY (MULTIPLE) NORMAL APPEARANCE (NORMAL)
[2022-05-27 16:26] LABS: DIFFERENTIAL COMMENT MANUAL DIFFERENTIAL
[2022-05-27] MEDS ORDERED: CALCIUM CHLORIDE ABBOJECT 1000MG/10 ML SYRINGE IVP STA (16:26)
--- NOTE | 2022-05-27 16:49 | CT Report ---
PROCEDURE: HEAD WO INDICATIONS: ams TECHNIQUE: Noncontrast 4.5 mm thick angled axial sections acquired from the foramen magnum to the vertex. For r adiation dose reduction, the following was used: automated exposure control, adjustment of mA and/or kV according to patient size. COMPARISON: None. FINDINGS: Image quality: Excellent. CSF spaces: Basal cisterns are patent. No extra-axial fluid collections. Ventricles are normal in size and shape. Brain: No midline shift. No intracranial masses or hemorrhage. Tracey-white matter interface is norm al. Skull and face: Calvarium and visualized facial bones are intact, without suspicious lesions. Sinuses: Visualized sinuses and mastoids are clear. IMPRESSION: No acute intracranial abnormality Reviewed by: Mik Estrella MD on 05/27/2022 3:48 PM AKOVIDIO Approved by: Mik Estrella MD on 05/27/2022 3:48 PM AKOVIDIO Station ID: [id number]
[2022-05-27 16:58] LABS: ABG HCO3 17.1 mmol/L (22.0-26.0); ABG PCO2 48 mmHg (34-45)
[2022-05-27 16:59] LABS: ABG BASE EXCESS -11.3 mmol/L (-2.0-3.0); ABG MODE OF VENTILATION ASSIST/CONTROL; ABG OXYGEN SATURATION 99 % (94-98); ABG RESPIRATORY RATE 16 b/min; ABG TCO2 18.5 MMOL/L (21.0-29.0); ALLEN TEST POSITIVE
[2022-05-27 17:01] LABS: ABG PH 7.17 (7.35-7.45); ABG PO2 327 mmHg (80-100)
--- NOTE | 2022-05-27 17:04 | CT Report ---
PROCEDURE: ANGIO ABD RUNOFF W/WO - B/L INDICATIONS: BLE pain CONTRAST: IV CONTRAST: Optiray 320 ml: 125 PO CONTRAST: *NO PO CONTRAST TECHNIQUE: After the administration of intravenous contrast, 2 and 5 mm sections acquired from T12 to the feet, with optional delayed image acquisition from the knees to the feet. 3-dimensional maximum intensity projection (MIP) coronal and sagittal reformats, and/or 3-dimensional volume rendering reformatting w as then performed. For radiation dose reduction, the following was used: automated exposure control , adjustment of mA and/or kV according to patient size. COMPARISON: Ankle-brachial index 12/24/2018. FINDINGS: Image quality: Excellent. Extravascular tissues: Mild dependent atelectasis in the lung bases bilaterally. Heart size is leroy l. Liver and spleen are normal in size and enhancement. Gallbladder is mildly prominent without gal lstones or pericholecystic inflammatory changes. Biliary system is non dilated. Pancreas enhances n ormally. Bilateral adrenals appear thickened and mildly hyperenhancing.. Kidneys are normal in size and enhancement, without hydronephrosis. Non opacified bowel loops demonstrate normal wall thickness and enhancement. No free fluid or air. No retroperitoneal or mesenteric adenopathy. No ventral he rnias. Bladder wall thickness is normal. No inguinal hernias or adenopathy. No suspicious bony les ions. No vertebral body compression fractures. Degenerative changes are seen in spine in the aviation ordnance officer ior portion of the hips bilaterally. Joint compartment degenerative changes are noted in both knees. Posterior and plantar calcaneal enthesophytes are seen bilaterally. Degenerative changes are seen wit hin the midfoot and hindfoot bilaterally. Diffuse soft tissue edema is seen within the left lower extremity below the level of the knee extendi ng into the foot. There is skin irregularity and a few foci of subcutaneous gas adjacent to the skin along the posterior medial aspect of the left calf. No significant intermuscular fascial edema. Mild edema is seen at the dorsum of the right foot. Abdominal aorta: Abdominal aorta is normal in size with mild atherosclerotic calcifications. The andrea gins of the celiac trunk, superior mesenteric artery, and bowel laterally renal arteries are patent. Atherosclerotic calcifications are seen at the origin of the inferior mesenteric artery, which is not well visualized. The common iliac arteries are patent bilaterally. Mild atherosclerotic calcificatio n of the origin of the right internal iliac artery. The left internal iliac artery and bilateral exte rnal iliac arteries are widely patent. Right lower extremity: The common femoral, profunda femoral, and superficial femoral arteries are so mewhat small in caliber but appear patent. The popliteal artery is patent. The tibioperoneal trunk, a nterior tibial artery, posterior tibial artery, and peroneal artery are patent to the level of the an kle. Additional more delayed scanning shows patent dorsalis pedis and posterior tibial arteries withi n the foot. Left lower extremity: The common femoral, profunda femoral, and superficial femoral arteries are marsha ewhat small in caliber but appear patent. The popliteal artery is patent. The tibioperoneal trunk, an terior tibial artery, posterior tibial artery, and peroneal artery are patent to the level of the ank le. Additional more delayed scanning shows patent dorsalis pedis and posterior tibial arteries within the foot. IMPRESSION: 1.No significant peripheral vascular disease is seen in the bilateral lower extremities. 2.Nonspecific subcutaneous soft tissue edema throughout the left lower leg and foot. Skin irregularit y is seen in the posterior left calf with small foci of subcutaneous gas adjacent to the skin surface , likely related to skin ulceration. Recommend correlation for cellulitis. No involvement of the deep er intermuscular fascial layers is seen. No signs of osteomyelitis. Reviewed by: Mik Estrella MD on 05/27/2022 4:03 PM ROSA ISELA Approved by: Mik Estrella MD on 05/27/2022 4:03 PM ROSA ISELA Station ID: [id number]
[2022-05-27] MEDS ORDERED: AMIODARONE 150 MG/3 ML VIAL IVP STA (17:08)
[2022-05-27 17:09] LABS: BILIRUBIN,URINE NEGATIVE (NEGATIVE); GLUCOSE, URINE (UA) NEGATIVE (NEGATIVE); KETONES,URINE (UA) NEGATIVE (NEGATIVE); LEUKOCYTE ESTERASE, URINE NEGATIVE (NEGATIVE); NITRITE,URINE NEGATIVE (NEGATIVE); OCCULT BLOOD,URINE MODERATE (NEGATIVE); PH,URINE 5.5 PH (5.0-7.5); PROTEIN,URINE 30 mg/dL (NEGATIVE); UROBILINOGEN,URINE 1 (NORMAL) E.U./dL (NORMAL)
[2022-05-27 17:10] LABS: CLARITY,URINE HAZY (CLEAR)
[2022-05-27] MEDS ORDERED: LACTATED RINGERS 1,000 ML IV STA (17:16)
[2022-05-27] MEDS ORDERED: diltiaZEM INJ 5 MG/ML VIAL ONE (17:19)
[2022-05-27 17:20] LABS: AMORPHOUS SEDIMENT,UR Few /LPF; BACTERIA,URINE Many /HPF (None Seen); SQUAMOUS EPITHELIAL CELL,UR MANY Squamous (<= Few)
[2022-05-27 17:21] LABS: AMPHETAMINE SCREEN,URINE NEGATIVE (NEGATIVE); BARBITURATE SCREEN,UR NEGATIVE (NEGATIVE); BENZODIAZEPINES SCREEN, URINE NEGATIVE (NEGATIVE); COCAINE SCREEN URINE NEGATIVE (NEGATIVE); METHADONE SCREEN, URINE NEGATIVE (NEGATIVE); METHAMPHETAMINES SCREEN, URINE NEGATIVE (NEGATIVE); MUDS CUTOFF CONCENTRATIONS N; OPIATE SCREEN, URINE NEGATIVE (NEGATIVE); OXYCODONE SCREEN, URINE NEGATIVE (NEGATIVE); PROPOXYPHENE SCREEN, URINE NEGATIVE (NEGATIVE); THC CANNABINOID SCREEN, URINE NEGATIVE (NEGATIVE); TRICYCLIC ANTIDEPRESSANT,URINE NEGATIVE (NEGATIVE)
[2022-05-27 17:53] VITALS: BP 94/49
[2022-05-27 17:54] LABS: CALCIUM 7.2 mg/dL (8.5-10.3); CREATININE 2.6 mg/dL (0.4-1.0); POTASSIUM 3.5 mmol/L (3.5-5.0)
[2022-05-27 17:57] LABS: B. PARAPERTUSSIS- RESP PCR PAN NOT DETECTED; B. PERTUSSIS- RESP PCR PANEL NOT DETECTED; C. PNEUMONIAE- RESP PCR PANEL NOT DETECTED; CORONAVIRUS 229E-RESP PCR NOT DETECTED; CORONAVIRUS HKU1-RESP PCR NOT DETECTED; CORONAVIRUS NL63-RESP PCR NOT DETECTED; CORONAVIRUS OC43-RESP PCR NOT DETECTED; HUMAN METAPNEUMOVIRUS NOT DETECTED; INFLUENZA A- RESP PCR PANEL NOT DETECTED; INFLUENZA B - RESP PCR PANEL NOT DETECTED; M. PNEUMONIAE- RESP PCR PANEL NOT DETECTED; PARAINFLUENZA VIRUS 1 NOT DETECTED; PARAINFLUENZA VIRUS 2 NOT DETECTED; PARAINFLUENZA VIRUS 3 NOT DETECTED; PARAINFLUENZA VIRUS 4 NOT DETECTED; RHINOVIRUS/ENTEROVIRUS NOT DETECTED; RSV- RESP PCR PANEL NOT DETECTED; SARS-CoV-2 -RESP PCR PANEL NOT DETECTED
== END 2022-05-27 18:23 | disposition short-term general hospital (02) ==
LOC: EDUNIT# → ED 14:45
DX: N17.9 Acute kidney failure, unspecified (principal); M72.6 Necrotizing fasciitis; I48.20 Chronic atrial fibrillation, unspecified; F17.200 Nicotine dependence, unspecified, uncomplicated
CPT/HCPCS: 31500; 36415; 36556; 36600; 70450; 71045; 75635; 80048; 80053; 80306; 81001; 82803; 83605; 83735; 84100; 85025; 85610; 85730; 87040; 87077; 87150; 87181; 87633; 93005; 94002; 96365; 96367; 96368; 96375; 99291; G0480; J0282; J3010; J3370; J7120; Q9967; 80320; 87086; 94770